=== PATIENT | female | born 2000 | race Two or more races ===

== ENCOUNTER 2020-02-16 19:53 | Emergency (ER) | payer SELFPAY ==
[~2020-02-16] VITALS: Ht 149.9 cm; Wt 61.0 kg
[2020-02-16] MEDS ORDERED: ONDANSETRON 4MG ODT PO ONE (22:15)
[2020-02-16] MEDS ORDERED: ACETAMINOPHEN 500MG TABLET PO ONE (22:15)
[2020-02-16] MEDS ORDERED: CYCLOBENZAPRINE 10MG TABLET PO ONE (23:00)
[2020-02-17] MEDS ORDERED: KETOROLAC 30MG/ML VIAL IM ONE (00:15)
[2020-02-17 00:33] VITALS: BP 129/77
== END 2020-02-17 00:34 | disposition home or self-care (01) ==
LOC: ER 19:53
DX: S09.8XXA Other specified injuries of head, initial encounter (principal); S16.1XXA Strain of muscle, fascia and tendon at neck level, initial encounter; W22.09XA Striking against other stationary object, initial encounter; Y93.89 Activity, other specified; Y92.89 Other specified places as the place of occurrence of the external cause
CPT/HCPCS: 70450; 72125; 81025; 96372; 99285; J1885; Q0162